=== PATIENT | female | born 1970 | race American Indian/Alaskan Native ===

== ENCOUNTER 2020-06-17 21:17 | Emergency (ER) | payer MEDICAID ==
[2020-06-17] MEDS ORDERED: ZIPRASIDONE MESYLATE 20 MG VIAL IM ONE ×2 (21:47→21:48)
[2020-06-17] MEDS ORDERED: WATER FOR INJ Sterile (PF) 10 ML ONE (21:47)
--- NOTE | 2020-06-17 21:57 | Emergency Department Report ---
<ABELARDO FOSS - Last Filed: 06/18/20 18:48> ED Altered Mental Status HPI - General Stated Complaint: MH/MUSCLE SPASM Time Seen by Provider: 06/17/20 21:48 - Related Data Allergies Allergy/AdvReac Type Severity Reaction Status Date / Time No Known Allergies Allergy Unverified 06/17/20 22:27 - Lab Data Result diagrams: 06/17/20 21:56 06/18/20 00:40 - Medical Decision Making Patient was evaluated for altered mental status. She was brought to the ER via EMS from [facility]. Patient is now awake and alert. She has history of heroin addiction and bipolar disorder. She does not meet criteria for 1013 involuntary hold or inpatient treatment. She does not want to return to [facility]. She was provided outpatient referrals for substance abuse and mental health care. She will be discharged home to the care of her son. Patient was evaluated by our mental health team. ED Disposition Clinical Impression: Altered mental status, Heroin dependence, Bipolar disorder Disposition: DC- TO HOME OR SELFCARE Is pt being admited?: No Does the pt Need Aspirin: No Condition: Stable Additional Instructions: OUTPATIENT MENTAL HEALTH RESOURCES [facility], [facility] Jack Coats MD: [address], [address] [facility] [address] [place] [address] [place] [address] [place] [facility]: [employer] [address] [place] [address] [place] [address] [phone] [facility]: [facility]: [facility] [address] [place] [address] [place] [address] [facility] [place] [address] [place] [facility]: Samson Sparrow MD: [id number] [facility] 110 [facility] [id number] [facility]: [address] [place] [address] [phone] SUBSTANCE ABUSE PROGRAMS: [facility]: Location: [place], [place] [facility] Address: [address] [place] [address], [place] [address] [facility] Recovery: Address: [address] [place], [place] [address] [facility] Adult Rehabilitation: Address: [address] [place] [address] [facility] ACCESS LINE: <ALFREDA DURON - Last Filed: 06/19/20 06:48> ED Altered Mental Status HPI - History of Present Illness Initial Comments: Patient is 50 years old female brought to the emergency room via EMS from [facility] for evaluation of altered mental status. Patient was checked in today for heroine addiction. Upon arrival to the ER patient is very agitated and have to be restrained. Patient stated that she is unable to sleep and she want something to relax her. Patient denied any headache, neck pain, chest pain, shortness of breath, abdominal pain, nausea or vomiting. Patient found to be hypertensive initially but her blood pressure is normalized now. MD Complaint: altered mental status, confusion Consistency of Symptoms: waxing and waning Context: drug abuse ED Review of Systems ROS: Stated complaint: MH/MUSCLE SPASM Other details as noted in HPI Comment: All other systems reviewed and negative Constitutional: denies: chills, fever Respiratory: denies: cough, shortness of breath, SOB with exertion, SOB at rest, wheezing Cardiovascular: denies: chest pain, palpitations Gastrointestinal: denies: abdominal pain, nausea, vomiting, diarrhea, constipation, hematemesis Neurological: denies: headache, weakness, numbness, paresthesias Psychiatric: anxiety ED Physical Exam - General General appearance: alert, anxious, other (agitated) - Head Head exam: Present: atraumatic, normocephalic, normal inspection - Eye Eye exam: Present: normal appearance - ENT ENT exam: Present: normal exam, normal orophraynx, mucous membranes moist - Neck Neck exam: Present: normal inspection, full ROM. Absent: tenderness, meningismus, lymphadenopathy, thyromegaly - Respiratory Respiratory exam: Present: normal lung sounds bilaterally - Cardiovascular Cardiovascular Exam: Present: regular rate, normal rhythm, normal heart sounds - GI/Abdominal GI/Abdominal exam: Present: soft, normal bowel sounds. Absent: distended, t enderness, guarding, rebound, rigid, organomegaly, mass, bruit, pulsatile mass - Extremities Exam Extremities exam: Present: normal inspection, full ROM, normal capillary refill. Absent: pedal edema, calf tenderness - Back Exam Back exam: Present: normal inspection, full ROM. Absent: CVA tenderness (R), CVA tenderness (L) - Neurological Exam Neurological exam: Present: alert, oriented X3, CN II-XII intact, normal gait, reflexes normal. Absent: motor sensory deficit - Psychiatric Psychiatric exam: Present: agitated, anxious. Absent: homicidal ideation, suicidal ideation - Skin Skin exam: Present: warm, intact, normal color ED Course Vital Signs 06/17/20 06/18/20 06/18/20 21:30 01:20 01:30 Pulse Rate 129 H 128 H Respiratory 18 26 H 26 H Rate Blood Pressure 191/82 O2 Sat by Pulse 97 99 100 Oximetry 06/18/20 06/18/20 06/18/20 01:46 02:00 02:16 Pulse Rate Respiratory 29 H 14 23 Rate Blood Pressure 191/82 138/107 182/101 O2 Sat by Pulse 97 98 98 Oximetry 06/18/20 06/18/20 06/18/20 02:30 02:35 03:00 Pulse Rate 122 H 112 H Respiratory 22 32 H Rate Blood Pressure 182/101 166/110 O2 Sat by Pulse 97 96 Oximetry 06/18/20 06/18/20 06/18/20 04:00 05:00 06:00 Pulse Rate 100 H 99 H 100 H Respiratory 28 H 27 H 25 H Rate Blood Pressure 166/110 123/73 127/79 O2 Sat by Pulse 96 98 95 Oximetry 06/18/20 06/18/20 06/18/20 07:00 08:00 09:00 Pulse Rate 109 H 94 H 97 H Respiratory 27 H 21 23 Rate Blood Pressure 138/89 133/82 151/91 O2 Sat by Pulse 94 Oximetry 06/18/20 06/18/20 06/18/20 10:00 11:00 13:00 Pulse Rate 85 84 91 H Respiratory 23 23 26 H Rate Blood Pressure 151/89 152/94 154/84 O2 Sat by Pulse 93 Oximetry 06/18/20 06/18/20 06/18/20 14:00 15:00 17:00 Pulse Rate 87 87 89 Respiratory 25 H 25 H 25 H Rate Blood Pressure 163/90 154/92 162/108 O2 Sat by Pulse 95 97 95 Oximetry - Lab Data Result diagrams: 06/17/20 21:56 06/18/20 00:40 Lab Results 06/17/20 06/17/20 06/17/20 Range/Units 21:56 21:56 21:56 WBC 14.5 H (4.5-11.0) K/mm3 RBC 5.28 H (3.65-5.03) M/mm3 Hgb 13.2 (10.1-14.3) gm/dl Hct 40.7 (30.3-42.9) % MCV 77 L (79-97) fl MCH 25 L (28-32) pg MCHC 32 (30-34) % RDW 15.4 H (13.2-15.2) % Plt Count 236 (140-440) K/mm3 Lymph % (Auto) Balancing Machine Set Up Worker [place] % (Auto) Balancing Machine Set Up Worker Eos % (Auto) Balancing Machine Set Up Worker Baso % (Auto) Balancing Machine Set Up Worker Lymph # Balancing Machine Set Up Worker [place] # Balancing Machine Set Up Worker Eos # Balancing Machine Set Up Worker Baso # Balancing Machine Set Up Worker Seg Neutrophils % Balancing Machine Set Up Worker Seg Neutrophils # Balancing Machine Set Up Worker Sodium (137-145) mmol/L Potassium (3.6-5.0) mmol/L Chloride (98-107) mmol/L Carbon Dioxide (22-30) mmol/L Anion Gap mmol/L BUN (7-17) mg/dL Creatinine (0.6-1.2) mg/dL Estimated GFR ml/min BUN/Creatinine Ratio % Glucose (65-100) mg/dL Lactic Acid 3.20 H* (0.7-2.0) mmol/L Calcium (8.4-10.2) mg/dL Total Bilirubin (0.1-1.2) mg/dL Direct Bilirubin (0-0.2) mg/dL Indirect Bilirubin mg/dL AST (5-40) units/L ALT (7-56) units/L Alkaline Phosphatase (35-129) units/L Ammonia 31.0 (25-60) umol/L Total Protein (6.3-8.2) g/dL Albumin (3.9-5) g/dL Albumin/Globulin Ratio % Urine Color (Yellow) Urine Turbidity (Clear) Urine pH (5.0-7.0) Ur Specific [place] (1.003-1.030) Urine Protein (Negative) mg/dL Urine Glucose (UA) (Negative) mg/dL Urine Ketones (Negative) mg/dL Urine Blood (Negative) Urine Nitrite (Negative) Urine Bilirubin (Negative) Urine Urobilinogen (<2.0) mg/dL Ur Leukocyte Esterase (Negative) Urine WBC (Auto) (0.0-6.0) /HPF Urine RBC (Auto) (0.0-6.0) /HPF U Epithel Cells (Auto) (0-13.0) /HPF Salicylates (2.8-20.0) mg/dL Urine Opiates Screen Urine Methadone Screen Acetaminophen (10.0-30.0) ug/mL Ur Barbiturates Screen Ur Phencyclidine Scrn Ur Amphetamines Screen U Benzodiazepines Scrn Urine Cocaine Screen U Marijuana (THC) Screen Drugs of Abuse Note Plasma/Serum Alcohol (0-0.07) % 06/17/20 06/17/20 06/17/20 Range/Units 21:56 21:56 21:56 WBC (4.5-11.0) K/mm3 RBC (3.65-5.03) M/mm3 Hgb (10.1-14.3) gm/dl Hct (30.3-42.9) % MCV (79-97) fl MCH (28-32) pg MCHC (30-34) % RDW (13.2-15.2) % Plt Count (140-440) K/mm3 Lymph % (Auto) [place] % (Auto) Eos % (Auto) Baso % (Auto) Lymph # [place] # Eos # Baso # Seg Neutrophils % Seg Neutrophils # Sodium (137-145) mmol/L Potassium (3.6-5.0) mmol/L Chloride (98-107) mmol/L Carbon Dioxide (22-30) mmol/L Anion Gap mmol/L BUN (7-17) mg/dL Creatinine (0.6-1.2) mg/dL Estimated GFR ml/min BUN/Creatinine Ratio % Glucose (65-100) mg/dL Lactic Acid (0.7-2.0) mmol/L Calcium (8.4-10.2) mg/dL Total Bilirubin (0.1-1.2) mg/dL Direct Bilirubin (0-0.2) mg/dL Indirect Bilirubin mg/dL AST (5-40) units/L ALT (7-56) units/L Alkaline Phosphatase (35-129) units/L Ammonia (25-60) umol/L Total Protein (6.3-8.2) g/dL Albumin (3.9-5) g/dL Albumin/Globulin Ratio % Urine Color (Yellow) Urine Turbidity (Clear) Urine pH (5.0-7.0) Ur Specific [place] (1.003-1.030) Urine Protein (Negative) mg/dL Urine Glucose (UA) (Negative) mg/dL Urine Ketones (Negative) mg/dL Urine Blood (Negative) Urine Nitrite (Negative) Urine Bilirubin (Negative) Urine Urobilinogen (<2.0) mg/dL Ur Leukocyte Esterase (Negative) Urine WBC (Auto) (0.0-6.0) /HPF Urine RBC (Auto) (0.0-6.0) /HPF U Epithel Cells (Auto) (0-13.0) /HPF Salicylates < 0.3 L (2.8-20.0) mg/dL Urine Opiates Screen Urine Methadone Screen Acetaminophen 5.0 L (10.0-30.0) ug/mL Ur Barbiturates Screen Ur Phencyclidine Scrn Ur Amphetamines Screen U Benzodiazepines Scrn Urine Cocaine Screen U Marijuana (THC) Screen Drugs of Abuse Note Plasma/Serum Alcohol < 0.01 (0-0.07) % 06/17/20 06/17/20 06/17/20 Range/Units 22:36 22:36 23:21 WBC (4.5-11.0) K/mm3 RBC (3.65-5.03) M/mm3 Hgb (10.1-14.3) gm/dl Hct (30.3-42.9) % MCV (79-97) fl MCH (28-32) pg MCHC (30-34) % RDW (13.2-15.2) % Plt Count (140-440) K/mm3 Lymph % (Auto) [place] % (Auto) Eos % (Auto) Baso % (Auto) Lymph # [place] # Eos # Baso # Seg Neutrophils % Seg Neutrophils # Sodium (137-145) mmol/L Potassium (3.6-5.0) mmol/L Chloride (98-107) mmol/L Carbon Dioxide (22-30) mmol/L Anion Gap mmol/L BUN (7-17) mg/dL Creatinine (0.6-1.2) mg/dL Estimated GFR ml/min BUN/Creatinine Ratio % Glucose (65-100) mg/dL Lactic Acid 6.30 H* (0.7-2.0) mmol/L Calcium (8.4-10.2) mg/dL Total Bilirubin (0.1-1.2) mg/dL Direct Bilirubin (0-0.2) mg/dL Indirect Bilirubin mg/dL AST (5-40) units/L ALT (7-56) units/L Alkaline Phosphatase (35-129) units/L Ammonia (25-60) umol/L Total Protein (6.3-8.2) g/dL Albumin (3.9-5) g/dL Albumin/Globulin Ratio % Urine Color Straw (Yellow) Urine Turbidity Clear (Clear) Urine pH 7.0 (5.0-7.0) Ur Specific [place] 1.005 (1.003-1.030) Urine Protein <15 mg/dl (Negative) mg/dL Urine Glucose (UA) Neg (Negative) mg/dL Urine Ketones Neg (Negative) mg/dL Urine Blood Neg (Negative) Urine Nitrite Neg (Negative) Urine Bilirubin Neg (Negative) Urine Urobilinogen < 2.0 (<2.0) mg/dL Ur Leukocyte Esterase Neg (Negative) Urine WBC (Auto) 1.0 (0.0-6.0) /HPF Urine RBC (Auto) 3.0 (0.0-6.0) /HPF U Epithel Cells (Auto) 2.0 (0-13.0) /HPF Salicylates (2.8-20.0) mg/dL Urine Opiates Screen Presumptive negative Urine Methadone Screen Presumptive negative Acetaminophen (10.0-30.0) ug/mL Ur Barbiturates Screen Presumptive negative Ur Phencyclidine Scrn Presumptive negative Ur Amphetamines Screen Presumptive negative U Benzodiazepines Scrn Presumptive negative Urine Cocaine Screen Presumptive positive U Marijuana (THC) Screen Presumptive negative Drugs of Abuse Note Disclamer Plasma/Serum Alcohol (0-0.07) % 06/18/20 06/18/20 06/18/20 Range/Units 00:40 00:40 06:10 WBC (4.5-11.0) K/mm3 RBC (3.65-5.03) M/mm3 Hgb (10.1-14.3) gm/dl Hct (30.3-42.9) % MCV (79-97) fl MCH (28-32) pg MCHC (30-34) % RDW (13.2-15.2) % Plt Count (140-440) K/mm3 Lymph % (Auto) [place] % (Auto) Eos % (Auto) Baso % (Auto) Lymph # [place] # Eos # Baso # Seg Neutrophils % Seg Neutrophils # Sodium 138 (137-145) mmol/L Potassium 5.1 H (3.6-5.0) mmol/L Chloride 95.1 L (98-107) mmol/L Carbon Dioxide 26 (22-30) mmol/L Anion Gap 22 mmol/L BUN 29 H (7-17) mg/dL Creatinine 1.4 H (0.6-1.2) mg/dL Estimated GFR 48 ml/min BUN/Creatinine Ratio 21 % Glucose 94 (65-100) mg/dL Lactic Acid 3.30 H* 1.30 (0.7-2.0) mmol/L Calcium 11.1 H (8.4-10.2) mg/dL Total Bilirubin 0.40 (0.1-1.2) mg/dL Direct Bilirubin < 0.2 (0-0.2) mg/dL Indirect Bilirubin 0.2 mg/dL AST 41 H (5-40) units/L ALT 25 (7-56) units/L Alkaline Phosphatase 66 (35-129) units/L Ammonia (25-60) umol/L Total Protein 7.8 (6.3-8.2) g/dL Albumin 4.7 (3.9-5) g/dL Albumin/Globulin Ratio 1.5 % Urine Color (Yellow) Urine Turbidity (Clear) Urine pH (5.0-7.0) Ur Specific [place] (1.003-1.030) Urine Protein (Negative) mg/dL Urine Glucose (UA) (Negative) mg/dL Urine Ketones (Negative) mg/dL Urine Blood (Negative) Urine Nitrite (Negative) Urine Bilirubin (Negative) Urine Urobilinogen (<2.0) mg/dL Ur Leukocyte Esterase (Negative) Urine WBC (Auto) (0.0-6.0) /HPF Urine RBC (Auto) (0.0-6.0) /HPF U Epithel Cells (Auto) (0-13.0) /HPF Salicylates (2.8-20.0) mg/dL Urine Opiates Screen Urine Methadone Screen Acetaminophen (10.0-30.0) ug/mL Ur Barbiturates Screen Ur Phencyclidine Scrn Ur Amphetamines Screen U Benzodiazepines Scrn Urine Cocaine Screen U Marijuana (THC) Screen Drugs of Abuse Note Plasma/Serum Alcohol (0-0.07) % - Medical Decision Making Patient is 50 years old female brought to the emergency room via EMS from [facility] for evaluation of altered mental status. Patient was checked in today for heroine addiction. Upon arrival to the ER patient is very agitated and have to be restrained. Patient stated that she is unable to sleep and she want something to relax her. Patient denied any headache, neck pain, chest pain, shortness of breath, abdominal pain, nausea or vomiting. Patient found to be hypertensive initially but her blood pressure is normalized now. Patient continued to be agitated. Patient received 2 mg of Ativan with no improvement. Patient received another 2 mg of Ativan with no improvement. Lactic acid 3. Patient continue on IV fluids. CT brain is still pending. Critical care attestation.: If time is entered above; I have spent that time in minutes in the direct care of this critically ill patient, excluding procedure time.
[2020-06-17 22:39] LABS: Hematocrit 40.7 % (30.3-42.9); Hemoglobin 13.2 gm/dl (10.1-14.3); Mean Corpuscular HGB Conc 32 % (30-34); Mean Corpuscular Volume 77 fl (79-97); Platelet Count 236 K/mm3 (140-440); Red Blood Count 5.28 M/mm3 (3.65-5.03); Red Cell Distribution Width 15.4 % (13.2-15.2)
[2020-06-17 23:01] LABS: Bilirubin,Urine NEG (Negative); Blood,Urine NEG (Negative); Color,Urine Straw (Yellow); Protein,Urine <15 mg/dL mg/dL (Negative); Urobilinogen,Urine < 2.0 mg/dL (<2.0)
[2020-06-17] MEDS ORDERED: LORazepam 2 MG/ML VIAL ONE (23:06)
[2020-06-17 23:10] LABS: Amphetamine Screen,Urine PRESUMPTIVE NEGATIVE; Benzodiazepines Screen,Urine PRESUMPTIVE NEGATIVE; Cannabinoid Screen,Urine PRESUMPTIVE NEGATIVE; Cocaine Screen,Urine PRESUMPTIVE POSITIVE; Methadone Screen,Urine PRESUMPTIVE NEGATIVE; Opiate Screen,Urine PRESUMPTIVE NEGATIVE
[2020-06-17] MEDS ORDERED: LORazepam 2 MG/ML VIAL IV ONE (23:16)
[2020-06-17] MEDS ORDERED: SODIUM CHLORIDE 0.9% 1000 ML 1,000 ML IV ONE (23:28)
[2020-06-18] MEDS ORDERED: LORazepam 2 MG/ML VIAL IV ONE ×2 (00:59→02:55)
[2020-06-18] MEDS ORDERED: SODIUM CHLORIDE 0.9% 1000 ML 1,000 ML IV ONE (00:59)
[2020-06-18 02:14] LABS: Alanine Aminotransferase 25 units/L (7-56); Albumin 4.7 g/dL (3.9-5); Bilirubin,Direct < 0.2 mg/dL (0-0.2); Blood Urea Nitrogen 29 mg/dL (7-17)
[2020-06-18 02:33] LABS: BUN/Creatinine Ratio 21; Calcium 11.1 mg/dL (8.4-10.2)
[2020-06-18] MEDS ORDERED: diphenhydrAMINE 50 MG/ML VIAL IV ONE (02:55)
--- NOTE | 2020-06-18 05:32 | Cat Scan Report ---
CT head/brain wo con INDICATION / CLINICAL INFORMATION: Altered Mental Status. TECHNIQUE: Axial CT imaging of the brain was obtained without contrast. Coronal and sagittal reformatted imaging obtained and reviewed. All CT scans at this location are performed using CT dose reduction for ALAR A by means of automated exposure control. COMPARISON: None available. FINDINGS: Focal area of encephalomalacia is identified in the posterior right frontal lobe. 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 No intracranial hemorrhage, mass, or midline shift is noted. No extra-axial fluid collection or sugge stion of acute territorial infarction. Ventricular system and basilar cisterns are unremarkable. Visualized paranasal sinuses and mastoid air cells are well aerated and clear. No calvarial abnormality. IMPRESSION: 1. No acute intracranial abnormality. 2. 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 Signer Name: Angela Almaguer MD Signed: 06/18/2020 5:27 AM Workstation Name: [id number]
[2020-06-18 20:48] VITALS: BP 162/108
== END 2020-06-18 20:30 | disposition home or self-care (01) ==
LOC: EEVIPCON 21:17 → ED 21:17
DX: R41.82 Altered mental status, unspecified (principal); F11.20 Opioid dependence, uncomplicated; F31.9 Bipolar disorder, unspecified
CPT/HCPCS: 36415; 70450; 80048; 80076; 80307; 81001; 82140; 85025; 96361; 96372; 96374; 96375; 96376; 99285; J1200; J2060; J3486; J7030; 80320; G0480